=== PATIENT | female | born 1990 | race Caucasian/White ===

== ENCOUNTER 2022-01-26 20:19 | Emergency (ER) | payer BC ==
[~2022-01-26] VITALS: Ht 162.6 cm; Wt 127.0 kg
== END 2022-01-26 23:00 | disposition home or self-care (01) ==
LOC: ER 20:19
DX: M94.0 Chondrocostal junction syndrome [Tietze] (principal); E11.9 Type 2 diabetes mellitus without complications
CPT/HCPCS: 99282

== ENCOUNTER → 2023-07-24 | Outpatient (CLI) | payer OTHER ==
[2023-07-24 12:25] LABS: BASOPHILS ABSOLUTE AUTO 0.04 K/mm3 (0.00-0.23); BASOPHILS PERCENT AUTO 0 % (0-2); EOSINOPHILS ABSOLUTE AUTO 0.18 K/mm3 (0.00-0.68); EOSINOPHILS PERCENT AUTO 2 % (0-6); Hematocrit 41.5 % (33.0-51.0); Hemoglobin 13.8 g/dL (11.5-16.0); IMMATURE GRAN ABSOLUTE AUTO 0.02 K/mm3 (0.00-0.10); IMMATURE GRAN PERCENT AUTO 0 % (0-1); LYMPHOCYTES ABSOLUTE AUTO 3.12 K/mm3 (0.84-5.20); LYMPHOCYTES PERCENT AUTO 26 % (21-46); MONOCYTES ABSOLUTE AUTO 0.49 K/mm3 (0.16-1.47); MONOCYTES PERCENT AUTO 4 % (4-13); Mean Corpuscular HGB 27.9 pg (26.0-34.0); Mean Corpuscular HGB Conc 33.3 g/dL (31.5-36.5); Mean Corpuscular Volume 84 fL (80-100); Mean Platelet Volume 10.4 fL (9.1-12.4); NEUTROPHILS ABSOLUTE AUTO 7.97 K/mm3 (1.96-9.15); NEUTROPHILS PERCENT AUTO 68 % (41-73); Platelet Count 401 K/mm3 (150-400); RDW Coefficient Variation 12.7 % (11.7-14.2); RDW Standard Deviation 38.6 fL (35.1-46.3); Red Blood Cell Count 4.95 M/mm3 (3.80-5.20); White Blood Cell Count 11.82 K/mm3 (4.00-11.30)
[2023-07-24 12:30] LABS: Albumin, Blood 3.6 g/dL (3.4-5.0); Albumin/Globulin Ratio 0.9 (0.8-1.8); Bilirubin, Total 0.8 mg/dL (0.1-1.0); Bun/Creatinine Ratio 22.6 (12.0-20.0); Calcium, Blood 9.9 mg/dL (8.5-10.1); Creatinine, Blood 0.49 mg/dL (0.40-1.00); Globulin, Blood 3.8 g/dL (2.2-4.0); Total Protein, Blood 7.4 g/dL (6.4-8.2)
== END ==
LOC: LAB 10:54 → LAB SHORT 10:54
PROVIDERS: Nurse Practitioner Family
DX: R19.7 Diarrhea, unspecified (principal); R10.9 Unspecified abdominal pain
CPT/HCPCS: 80053; 82150; 83690; 85025

== ENCOUNTER 2024-05-03 11:16 | Day surgery (SDC) | payer OTHER ==
[~2024-05-03] VITALS: Ht 162.6 cm; Wt 129.3 kg
[2024-05-03] VITALS (9 sets, daily range): BP systolic 99–144; BP diastolic 57–94
[~2024-05-03 11:16] MED LIST: Indocyanine Green 25 MG Vial IV SCH; LEVONOR-ETH ES1 EAC5 PO; Lactated Ringer's 1,000 ML IV SCH; METF500 PO; PRAV20 PO; VENL75ER PO
[2024-05-03] MEDS ORDERED: Bupivacaine 0.5% HCl 5 MG/ML 30MLVIAL ONE (12:05)
[2024-05-03] MEDS ORDERED: FentaNYL Citrate 50 MCG/ML 2 ML Injection ONE (12:21)
[2024-05-03] MEDS ORDERED: Midazolam HCl 1MG / ML 2ML Vial ONE (12:21)
[2024-05-03] MEDS ORDERED: propofoL 20 ML IV ONE (12:21)
[2024-05-03] MEDS ORDERED: Rocuronium Bromide 10 MG/ML 5ML Injection IV ONE ×2 (12:22→13:06)
[2024-05-03] MEDS ORDERED: Dexamethasone Sod Phos 10 MG/ML 1ML VIAL ONE (12:22)
--- NOTE | 2024-05-03 12:25 | NUR ---
1130 History, Chart, Medications and Allergies reviewed before start of procedure.Patient confirms NPO status and agrees with scheduled surgery. Pre-Op teaching done. Pt verbalizes understanding. PRIOR TO SURGERY EYE GLASSES TAKEN TO PACU
[2024-05-03] MEDS ORDERED: HYDROmorphone HCl/Pf 1MG SYR ONE (12:40)
[2024-05-03] MEDS ORDERED: ePHEDrine Sulfate 50 MG/ML 1ML Injection IV PRN (12:45)
[2024-05-03] MEDS ORDERED: Ondansetron HCl 2 MG / ML 2ML Vial IV PRN (12:45)
[2024-05-03] MEDS ORDERED: Albuterol 2.5 MG/3 ML VIAL INH PRN (12:50)
[2024-05-03] MEDS ORDERED: FentaNYL Citrate 50 MCG/ML 2 ML Injection IV PRN ×2 (12:50)
[2024-05-03] MEDS ORDERED: Labetalol HCL 5 MG/ML 4ML Injection (Single Dose) IV PRN (12:50)
[2024-05-03] MEDS ORDERED: HYDROmorphone HCl/Pf 1MG SYR IV PRN ×2 (12:50)
[2024-05-03] MEDS ORDERED: LORazepam 2 MG/ML 1ML Injection IV PRN (12:50)
[2024-05-03] MEDS ORDERED: Labetalol HCL 5 MG/ML 4ML Injection (Single Dose) ONE (13:09)
[2024-05-03] MEDS ORDERED: Ondansetron HCl 2 MG / ML 2ML Vial ONE (13:17)
[2024-05-03] MEDS ORDERED: Ketorolac Tromethamine 30mg Vial ONE (13:17)
[2024-05-03] MEDS ORDERED: Sugammadex Sodium 200 MG/2ML SDV (100 MG/ML) ONE (13:23)
[2024-05-03] MEDS ORDERED: HYDROcodone 5-APAP 325 TAB PO PRN (14:05)
--- NOTE | 2024-05-03 15:03 | NUR ---
DISCHARGE NOTE PT A&OX4, BREATHING RA, TOLERATING PO INTAKE, VSS, PO PAIN MEDICATION GIVEN PER MD ORDERS. Patient up to Ambulate independently. Gait steady.PT DRESSED INDEPENDENTLY. Discharge instructions reviewed with patient. Patient verbalizes understanding. Copy given to patient to take home. Dressing to procedure site clean, dry, intact with no visible drainage, swelling, erythema or bruising noted. Discharged via wheelchair to private car for ride home.
== END 2024-05-03 15:00 | disposition home or self-care (01) ==
LOC: ORSCMMR 11:16 → ORD 12:30 → ORSCMMR 15:00
PROVIDERS: Surgery
PROC: 8E0W4CZ Robotic Assisted Procedure of Trunk Region, Percutaneous Endoscopic Approach (ICD-10-PCS; principal; 2024-05-03 12:30)
PROC: 0FT44ZZ Resection of Gallbladder, Percutaneous Endoscopic Approach (ICD-10-PCS; principal; 2024-05-03 12:30)
DX: K82.4 Cholesterolosis of gallbladder (principal); J45.909 Unspecified asthma, uncomplicated; G47.33 Obstructive sleep apnea (adult) (pediatric); E11.9 Type 2 diabetes mellitus without complications; Z79.84 Long term (current) use of oral hypoglycemic drugs; F41.9 Anxiety disorder, unspecified; F32.A Depression, unspecified; Z79.899 Other long term (current) drug therapy; K76.0 Fatty (change of) liver, not elsewhere classified; E66.01 Morbid (severe) obesity due to excess calories; Z68.42 Body mass index [BMI] 45.0-49.9, adult
CPT/HCPCS: 82947; 88304; A9270; J1100; J1171; J1885; J2250; J2405; J2704; J3010; J7120

== ENCOUNTER → 2024-07-30 | Outpatient (CLI) | payer OTHER ==
[~2024-07-30] MED LIST changes: -Indocyanine Green 25 MG Vial IV SCH; -Lactated Ringer's 1,000 ML IV SCH
== END ==
LOC: LAB SHORT 07:34 → LAB 07:34
DX: B35.1 Tinea unguium (principal); L60.2 Onychogryphosis
CPT/HCPCS: 88305; 88312